=== PATIENT | female | born 1975 | race Caucasian/White ===

== ENCOUNTER → 2018-08-30 | Outpatient (CLI) | payer OTHER | LOC: M.RAD 13:50 | DX: M79.674 Pain in right toe(s) (principal) ==

== ENCOUNTER → 2020-10-06 | Outpatient (CLI) | payer OTHER | LOC: M.RAD 16:00 | PROVIDERS: ATTEND Family Medicine | DX: Z12.31 Encounter for screening mammogram for malignant neoplasm of breast (principal) ==